=== PATIENT | male | born 1995 | race Caucasian/White ===

== ENCOUNTER 2017-12-04 21:47 | Emergency (ER) | payer BC ==
[2017-12-05 00:58] VITALS: BP 125/70
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
--- NOTE | 2017-12-05 07:46 | RAD ---
INDICATION: Right wrist injury COMPARISON: Right wrist December 04, 2017 TECHNIQUE: AP, lateral, and oblique views were obtained. FINDINGS: There is no acute radiological change. There is apparent mild fragmentation of one of the carpal bones along the dorsum the wrist, perhaps the triquetral bone. This does not have the appearance of an acute fracture but could be subacute. Given that there is soft tissue swelling over the dorsum the wrist and an acute injury, suggest CT imaging of the wrist. IMPRESSION: SOFT TISSUE SWELLING. SUSPECTED AGE-INDETERMINATE CARPAL INJURY. SUGGEST CT IMAGING OF THE WRIST.
== END 2017-12-05 00:55 | disposition home or self-care (01) ==
LOC: ED 21:47
DX: S63.501A Unspecified sprain of right wrist, initial encounter (principal); M25.531 Pain in right wrist; V19.9XXA Pedal cyclist (driver) (passenger) injured in unspecified traffic accident, initial encounter; Y93.55 Activity, bike riding; Y92.9 Unspecified place or not applicable
CPT/HCPCS: 99281